=== PATIENT | male | born 1940 | race Caucasian/White ===

== ENCOUNTER 2019-07-27 08:27 | Emergency (ER) | payer MEDICARE, SELFPAY ==
--- NOTE | ~2019-07-27 | XR_ITS ---
EXAMINATION: [id number]_CR DATE: 07/27/2019 09:48 INDICATION: Right chest pain. Fall. TECHNIQUE: A frontal view of the chest and 3 views of the right ribs were obtained. COMPARISON: Chest 2 views 01/24/2019 FINDINGS: There is mild atelectasis in right lower lung zone. No pleural effusion or pneumothorax. Th e heart size is normal. There is an electronic implant in left anterior chest wall. There are old hea led fractures of right fifth-seventh ribs. There is a chronic compression fracture in lumbar spine wi th changes of vertebroplasty. IMPRESSION: 1. No acute rib fracture. Reviewed, dictated and finalized at location A. SPECIALIST IMPRESSION: 1. No acute rib fracture.
--- NOTE | ~2019-07-27 | XR_ITS ---
EXAMINATION: XR tibia fibula RT 2V DATE: 07/27/2019 09:48 INDICATION: Right lower leg pain. TECHNIQUE: 2 views of right tibia and fibula on 4 radiographs were obtained. COMPARISON: Right ankle radiographs 08/12/2016 FINDINGS: There is a total right knee arthroplasty in near-anatomic alignment. No periprosthetic luce ncy to suggest loosening or infection. There is a screw in distal fibula. There is heterotopic ossifi cation distal to medial malleolus. There is mild midfoot osteoarthritis. There are enthesophytes at t he posterior and plantar aspects of calcaneal tuberosity. Vascular calcifications are noted. IMPRESSION: 1. Total right knee arthroplasty in near-anatomic alignment. Reviewed, dictated and finalized at location A. D NUTRITION ASSISTANT
[2019-07-27 08:32] VITALS: BP 124/73; PULSE 57; RESP 16; TEMP 36.6; O2SAT 99
--- NOTE | 2019-07-27 11:09 | ED.FALL ---
HPI - Fall General Chief Complaint: Fall Stated Complaint: fall Time Seen by Provider: 07/27/19 08:59 Source: patient Mode of arrival: ambulatory Limitations: no limitations History of Present Illness HPI Narrative: Patient presents with chief complaint of large skin tear to the right lower leg and pain to the right ribs after falling off the edge of the bed yesterday. Patient states he was told that he has osteoporosis so he wanted to make sure he had not fractured his ribs as he has in the past. Patient states his past medical history significant for cervical spine surgery in January 2019, but he denies any head impact or neck pain due to his recent fall. Patient states that he was on metoprolol due to A. fib but it was removed as they wonder if it was making him dizzy. Patient states that he was also on blood thinners but they were stopped as he falls frequently. Patient states that he has an appointment with Dr. Fisher at 3:30 PM today because his loop recorder has been picking up more episodes of A. fib and they are going to address it. He denies any dizziness, headache, nausea, vomiting, chest pain, shortness of breath, neck pain, abdominal pain, back pain or any other symptoms at this time. Related Data Home Medications Medication Instructions Recorded Confirmed allopurinol 100 mg tablet 100 mg PO DAILY 04/21/19 amiodarone 100 mg tablet 100 mg PO BID tablet 04/21/19 aspirin 325 mg tablet 325 mg PO DAILY 04/21/19 atorvastatin 10 mg tablet 10 mg PO DAILY 04/21/19 azelastine 137 mcg (0.1 %) nasal 137 mcg NASAL Q12H 04/21/19 spray aerosol budesonide-formoterol HFA 160 2 puff INHALATION Q12H 04/21/19 mcg-4.5 mcg/actuation aerosol inhaler cetirizine 10 mg tablet 5 mg PO DAILY PRN 04/21/19 doxycycline hyclate 50 mg capsule 50 mg PO Q12H cap 04/21/19 fluticasone propionate 50 1 spray NASAL DAILY 04/21/19 mcg/actuation nasal spray,suspension guaifenesin 600 mg tablet, 600 mg PO BID 04/21/19 extended release 12 hr ipratropium bromide 17 1 puff INHALATION QID 04/21/19 mcg/actuation HFA aerosol inhaler lansoprazole 30 mg capsule,delayed 30 mg PO DAILY 04/21/19 release metolazone 2.5 mg tablet 2.5 mg PO DAILY 04/21/19 midodrine 10 mg tablet 10 mg PO TID 04/21/19 montelukast 10 mg tablet 10 mg PO DAILY 04/21/19 silodosin 4 mg capsule 8 mg PO DAILY cap 04/21/19 Allergies Allergy/AdvReac Type Severity Reaction Status Date / Time minocycline Allergy Mild Rash Verified 04/26/19 13:36 morphine Allergy Unknown Unknown Verified 04/26/19 13:36 Sulfa (Sulfonamide Allergy Unknown Unknown Verified 04/26/19 13:36 Antibiotics) Dust Allergy Intermediate SNEEZING, Uncoded 02/22/19 11:26 SINUS ISSUES Molds and Smuts Allergy Mild Cough Uncoded 02/22/19 11:26 Review of Systems Review of Systems: Narrative: CONSTITUTIONAL: Denies fever, chills, or sweats. EYES: Denies visual changes, redness, or discharge. ENT: Denies rhinorrhea, congestion, sore throat, or otalgia. CARDIOVASCULAR: Denies chest pain, palpitations, or edema. RESPIRATORY: Denies cough or dyspnea. GASTROINTESTINAL: Denies abdominal pain, nausea, vomiting, or diarrhea. GENITOURINARY: Denies dysuria or hematuria. SKIN: Reports skin tear. MUSCULOSKELETAL: Reports right rib and leg pain NEUROLOGIC: Denies headache, numbness, dizziness, or weakness. PSYCHIATRIC: Denies anxiety or depression. PMFSH Social History Social History Smoking status: Former smoker Second hand tobacco smoke exposure: No Smoking end date: 06/21/75 Alcohol intake: current Exam Narrative: Exam Narrative: GENERAL: Well-appearing, well-nourished, and in no acute distress. HEAD: Normocephalic, atraumatic. EYES: PERRLA and EOMI. ENT: Nares clear, no rhinorrhea or epistaxis. Mucous membranes moist. Oropharynx without tonsillar hypertrophy exudate or other lesions. Bilateral TMs pearly avina nonbulg
== END 2019-07-27 11:44 | disposition home or self-care (01) ==
PROVIDERS: Emergency Provider Physician Assistant; PCP Family Medicine
DX: S81.811A Laceration without foreign body, right lower leg, initial encounter (principal); S20.211A Contusion of right front wall of thorax, initial encounter; I48.91 Unspecified atrial fibrillation; Z87.891 Personal history of nicotine dependence; Z96.651 Presence of right artificial knee joint; M81.0 Age-related osteoporosis without current pathological fracture; W06.XXXA Fall from bed, initial encounter
CPT/HCPCS: 71101; 73590; 99284

== ENCOUNTER 2019-08-01 01:15 | Inpatient (IN) | payer MEDICARE, SELFPAY ==
[2019-08-01] VITALS (20 sets, daily range): BP systolic 98–141; BP diastolic 50–80; PULSE 98–128; RESP 16–25; TEMP 36.4–37.2; O2SAT 93–100; BMI 31.6
--- NOTE | ~2019-08-01 | CT_ITS ---
EXAMINATION: CT brain wo con DATE: 08/01/2019 01:43 INDICATION: Fall yesterday. Head injury. TECHNIQUE: Computed tomography (CT) of the head was performed without intravenous contrast. The mA wa s adjusted according to patient size. Iterative reconstruction technique was employed. Exam dose: 68 1.00 mGy-cm total exam DLP. COMPARISON: 01/24/2019 CT brain FINDINGS: There is some motion artifact, mildly limiting the study. 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 There is prominent bilateral carotid siphon internal carotid artery calcification and vertebral arter y and basilar artery calcification. There is nonspecific diminished attenuation of the cerebral white matter, likely due to chronic small vessel ischemic changes. No recent cerebrovascular infarct is evident but CT is not sensitive for detection of hyperacute isch emic infarct. There is moderate central and cortical cerebral and cerebellar atrophy. No midline shift or mass effe ct. No subdural or epidural hematoma is detected. Old minimally depressed posterior left parietal fracture is noted. No recent skull fracture is identi fied. The paranasal sinuses and mastoid air cells are unremarkable. IMPRESSION: No acute intracranial finding or new skull fracture is identified Reviewed, dictated and finalized at Location [facility]. Reviewed, dictated and finalized at location A. ED/WOODSHOP TEACHER
--- NOTE | ~2019-08-01 | XR_ITS ---
EXAMINATION: XR forearm LT 2V DATE: 08/01/2019 01:51 INDICATION: Laceration to the left forearm TECHNIQUE: AP an lateral views of the left forearm were obtained. COMPARISON: none FINDINGS: Bone alignment is normal. No fracture. Moderate osteoarthritis at the first carpal metacarpal joint a nd mild osteoarthritis at the triscaphe joint. No left elbow joint effusion. Small enthesophytes at t he medial and lateral epicondyles. No evident soft tissue gas or radiopaque foreign bodies. IMPRESSION: 1. No acute osseous abnormality or radiopaque foreign bodies. Reviewed, dictated and finalized at location A. ATOR TESTER
--- NOTE | ~2019-08-01 | CT_ITS ---
EXAMINATION: CT facial & cervical spine wo DATE: 08/01/2019 01:44 INDICATION: Fall, head injury. Frequent falls. TECHNIQUE: Computed tomography (CT) of the facial bones and maxillofacial region and cervical spine w as performed without intravenous contrast. Automated exposure control and iterative reconstruction te chnique were employed. Exam dose: 390.76 mGy-cm total exam DLP. COMPARISON: None. FINDINGS: The examination is limited by motion. There is mild mucoperiosteal thickening of both maxillary sinuses. The frontozygomatic sutures, orbital rims and ohara, zygomatic arches and the nasal bones and anterio r maxillary spine and the remainder of the facial bones are intact, without evidence of fracture. Nor mal alignment at the temporomandibular joints. No mandibular fracture is evident. Incidentally noted are prominent; tubular and submental lymph nodes. Status post anterior and interbody spinal fusion at C4-5. There is moderate degenerative disc disease throughout the cervical spine. There is degenerative mahajan ge at the apophyseal joints throughout the cervical spine. No fracture or dislocation or locked facet or prevertebral soft tissue swelling is detected. IMPRESSION: No evidence of facial fracture Mild bilateral maxillary sinus mucoperiosteal thickening Prominent submandibular and submental lymph nodes Status post anterior and interbody spinal fusion at C4-5 Degenerative changes of the cervical spine Reviewed, dictated and finalized at Location [facility]. Reviewed, dictated and finalized at location A. NESS AFFAIRS MANAGER
--- NOTE | ~2019-08-01 | XR_ITS ---
EXAMINATION: XR chest 1V portable EXAM DATE: 08/01/2019 01:51 INDICATION: Dizziness. TECHNIQUE: Portable AP frontal chest x-ray was obtained. Comparison is made to prior examination from 01/24/2019. FINDINGS: Minimal linear left basilar scarring unchanged. The lungs are otherwise clear. There are n o pleural effusions. The cardiomediastinal silhouette is within normal limits. There is no pneumoth orax suspected. There are old left rib fractures. Lumbar vertebroplasty. IMPRESSION: No acute cardiopulmonary findings. Reviewed, dictated and finalized at location B. DRILL OPERATOR
--- NOTE | 2019-08-01 01:15 | ED.FALL ---
HPI - Fall General Chief Complaint: Fall Stated Complaint: fall Time Seen by Provider: 08/01/19 01:15 Source: patient Mode of arrival: EMS Limitations: no limitations History of Present Illness HPI Narrative: A 78 y/o male presents to the ED, via EMS, after a fall today. Pt states that he got up to use the bathroom when he felt dizzy and fell. Pt reports a HI with a laceration near his right eye. Pt states that he has fallen multiple times recently with his last fall occurring on (5 days ago). Pt will get dizzy when I'm walking too fast. Pt not currently dizzy in the ED bed. Pt has a PMHx of A-fib and follows up with Dr. Fisher. Pt is on ASA. Pt lives with his . He denies a GAMBINO, N/V, CP, SOB, leg pain, shoulder pain, neck pain, and hip pain. Pt has a C-collar in place. Place fall occurred: home Symptoms prior to fall: dizziness Context: history of frequent falls Related Data Home Medications Medication Instructions Recorded Confirmed allopurinol 100 mg tablet 100 mg PO DAILY 04/21/19 amiodarone 100 mg tablet 100 mg PO BID tablet 04/21/19 aspirin 325 mg tablet 325 mg PO DAILY 04/21/19 atorvastatin 10 mg tablet 10 mg PO DAILY 04/21/19 azelastine 137 mcg (0.1 %) nasal 137 mcg NASAL Q12H 04/21/19 spray aerosol budesonide-formoterol HFA 160 2 puff INHALATION Q12H 04/21/19 mcg-4.5 mcg/actuation aerosol inhaler cetirizine 10 mg tablet 5 mg PO DAILY PRN 04/21/19 doxycycline hyclate 50 mg capsule 50 mg PO Q12H cap 04/21/19 fluticasone propionate 50 1 spray NASAL DAILY 04/21/19 mcg/actuation nasal spray,suspension guaifenesin 600 mg tablet, 600 mg PO BID 04/21/19 extended release 12 hr ipratropium bromide 17 1 puff INHALATION QID 04/21/19 mcg/actuation HFA aerosol inhaler lansoprazole 30 mg capsule,delayed 30 mg PO DAILY 04/21/19 release metolazone 2.5 mg tablet 2.5 mg PO DAILY 04/21/19 midodrine 10 mg tablet 10 mg PO TID 04/21/19 montelukast 10 mg tablet 10 mg PO DAILY 04/21/19 silodosin 4 mg capsule 8 mg PO DAILY cap 04/21/19 Allergies Allergy/AdvReac Type Severity Reaction Status Date / Time minocycline Allergy Mild Rash Verified 04/26/19 13:36 morphine Allergy Unknown Unknown Verified 04/26/19 13:36 Sulfa (Sulfonamide Allergy Unknown Unknown Verified 04/26/19 13:36 Antibiotics) Dust Allergy Intermediate SNEEZING, Uncoded 02/22/19 11:26 SINUS ISSUES Molds and Smuts Allergy Mild Cough Uncoded 02/22/19 11:26 Review of Systems Review of Systems: All systems reviewed & are unremarkable except as noted in HPI and below Constitutional: Comments: Reports: a fall Cardiovascular: Cardiovascular: Denies chest pain Respiratory: Respiratory: Denies dyspnea Gastrointestinal: Gastrointestinal: Denies nausea and Denies vomiting Musculoskeletal: Comments: Reports: laceration near right eye; Denies: leg pain, shoulder pain, neck pain, hip pain Neurologic: Reports dizziness (resolved) and Denies headache(s) Comments: Reports: [facility] Past Medical History Medical History (Updated 08/01/19 @ 03:50 by Hilary Lopez MD) Afib Allergic rhinitis, unspecified Anemia Benign hypertension Carotid artery disease Congestive heart failure Coronary artery disease Crohn's disease with complication Depression Diverticulitis Gastroesophageal reflux disease Gout, unspecified (06/06/15) Hypertensive chronic kidney disease with stage 1 through stage 4 chronic kidney disease, or unspecified chronic kidney disease Hypokalemia Leukocytosis Low iron Lymphedema Male erectile dysfunction, unspecified (06/06/15) Mixed hyperlipidemia (06/06/15) Paroxysmal atrial fibrillation Primary osteoarthritis, unspecified site Syncope and collapse 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
--- NOTE | 2019-08-01 01:18 | ECG_ITS ---
ATRIAL FIBRILLATION WITH RAPID VENTRICULAR RESPONSE INTRAVENTRICULAR CONDUCTION DELAY NONSPECIFIC ST & T-WAVE ABNORMALITY- DIFFUSE LEADS ABNORMAL ECG Electronically Signed On 08-02-2019 11:47:54 BEER STILL RUNNER COMPOUNDER by Da HARGROVE
[2019-08-01 01:59] LABS: Basophils Absolute Auto 0.1 K/mm3 (0.0-0.1); Basophils Percent Auto 0.6 % (0.2-1.2); Eosinophils Absolute Auto 0.1 K/mm3 (0-0.3); Eosinophils Percent Auto 0.5 % (0-4.4); Hemoglobin 13.5 g/dL (14.0-18.0); Immature Granulocyte Absolute 0.04 K/mm3 (0.00-0.031); Immature Granulocyte Percent A 0.4 % (0-0.5); Lymphocytes Absolute Auto 1.58 K/mm3 (0.9-3.2); Lymphocytes Percent Auto 16.1 % (18.3-44.2); Mean Corpuscular HGB Conc 32.1 g/dl (32-36); Mean Corpuscular Hemoglobin 28.1 pg (26-34); Mean Corpuscular Volume 87.5 fl (80-100); Monocytes Absolute Auto 1.3 K/mm3 (0.1-0.6); Monocytes Percent Auto 13.3 % (2.6-8.5); Neutrophils Absolute Auto 6.8 K/mm3 (1.3-6.7); Neutrophils Percent Auto 69.1 % (45.5-73.1); Platelet Count Result 142 k/mm3 (150-375); Red Cell Distribution Width 15.4 % (11.5-14.5); White Blood Count 9.8 K/mm3 (4.5-10.0)
[2019-08-01 02:10] LABS: Partial Thromboplastin Time 30.9 SECONDS (22.3-36.8); Prothrombin Time 12.9 Seconds (11.1-14.7)
[2019-08-01 02:27] LABS: Troponin I < 0.012 ng/mL (0.000-0.034)
[2019-08-01 02:29] LABS: Alanine Aminotransferase 130 U/L (4-50); Albumin Level 3.9 g/dL (3.5-5.1); Alkaline Phosphatase 171 U/L (38-126); Aspartate Amino Transferase 178 U/L (17-59); Blood Urea Nitrogen 27 mg/dL (9-20); Calcium 8.4 mg/dL (8.4-10.2); Carbon Dioxide 33 mmol/L (22-30); Chloride 86 mmol/L (98-107); Estimated Glomerular Filt Rate 46; Glucose 124 mg/dL (75-110); Magnesium 2.1 mg/dL (1.6-2.3); Sodium 133 mmol/L (137-145)
[2019-08-01 02:37] LABS: NT Pro B Type Natriuretic Pept 3910 PG/ML (5-100)
[2019-08-01] MEDS: POTASSIUM CHLORIDE 20 MEQ TABLET 40 MEQ PO ×2 (03:08→18:03)
--- NOTE | 2019-08-01 03:59 | ADMGEN ---
This patient, Jovani Jordan, was admitted to IMU Room 201-01. Patient/family oriented to hospital policies and general routines including ID bracelet, bed and alarms, visiting hours, pain management, procedures, bathroom and other care routines, personal items, smoking policy, room service/diet, and visiting hours. Valuables list has been completed. Information on how to activate the Rapid Response Team has been discussed. Patient/Family are encouraged to report perceived risks to care and to ask questions if they do not understand what they are told or what they should do.
[2019-08-01] MEDS: ACETAMINOPHEN 500 MG TABLET 1000 MG PO ×2 (09:37→18:03)
--- NOTE | 2019-08-01 10:05 | PM.IMHP ---
H&P: HPI History of Present Illness Chief complaint: ATRIAL FIBRILLATION WITH RVR,DIZZINESS,HYPOKALEMIA Narrative: Date and Time of Service of History & Physical: August 01, 2019 at 9:50 a.m.. Date and Time of Placement in Observation Order: August 01, 2019 at 3:11 a.m.. Chief Complaint: Dizziness and fall. History of Present Illness: Jovani Jordan is a 78 year old male with known paroxysmal atrial fibrillation, orthostatic hypotension, chronic diastolic congestive heart failure, asthma, COPD, obstructive sleep apnea and several other comorbidities including BPH who presented to the emergency room early this morning with complaint of fall and dizziness. Patient reports he gets up frequently at night to urinate. He has been seen urologist with adjustment in medications. Early this morning, patient had gone to the bathroom with his walker. He reports feeling very dizzy and unable to stand up. He believes he hit the vanity but no loss of consciousness. He does report he was treated for a urinary tract infection approximately 2 weeks ago. No current dysuria or hematuria. Patient with a known history of falling frequently. He does see Dr. Fisher for his atrial fibrillation. He reports he does have periodic increase in heart rate which is documented on his Apple watch. No recent fever or chills. He has had a cough for the past 3 days. He does also report chronic problems with constipation. Due to the fall, patient was brought to the emergency room. He was noted to be in atrial fibrillation with RVR. Bruising and lacerations noted. Cardiology was consulted from the emergency room. Patient has been placed in observation for further evaluation and treatment. Review of Systems Review of Systems: All systems reviewed & are unremarkable except as noted in HPI and below Constitutional: Constitutional: Denies chills and Denies fever(s) Eyes: Eyes: Denies blurry vision and Denies diplopia ENT: Denies epistaxis and Denies nasal discharge Cardiovascular: Cardiovascular: Denies chest pain, Reports lightheadedness and Denies palpitations Respiratory: Respiratory: Reports cough (x 3 days) and Denies dyspnea Gastrointestinal: Gastrointestinal: Reports abdominal pain, Reports constipation, Denies nausea and Denies vomiting Genitourinary: Genitourinary: Denies hematuria, Denies dysuria and Reports urinary frequency Musculoskeletal: Musculoskeletal: Reports back pain and Reports arthralgias (Shoulders) Integumentary/Breasts: Skin/Breast: Denies rash Comments: Laceration by right eye and bruising Neurologic: Denies confusion and Denies headache(s) Psychiatric: Psychiatric: Denies anxiety and Denies depression Endocrine: Endocrine: Reports no additional endocrine complaints Hematologic/Lymphatic: Hematologic/Lymphatic: Reports no additional hematologic/lymphatic complaints Allergic/Immunologic: Allergic/Immunologic: Reports no additional allergic/immunologic complaints [facility] Past Medical History Medical History (Updated 08/01/19 @ 17:39 by Ritu Ayala MD) Allergic rhinitis, unspecified Anemia Benign hypertension Carotid artery disease Congestive heart failure Contraindication to anticoagulation therapy Coronary artery disease Crohn's disease with complication Depressed skull fracture surgery on 01/25/2019 Depression Diverticulitis Gastroesophageal reflux disease Gout, unspecified (06/06/15) Hypertensive chronic kidney disease with stage 1 through stage 4 chronic kidney disease, or unspecified chronic kidney disease Hypokalemia Leukocytosis Low iron Lymphedema Male erectile dysfunction, unspecified (06/06/15) Mixed hyperlipidemia (06/06/15) Orthostatic hypotension Paroxysmal atrial fibrillation Persistent atrial fibrillation Primary osteoarthritis, unspecified site Status post placement of implantable loop recorder Syncope and collapse 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
--- NOTE | 2019-08-01 10:43 | PM.CNCAR ---
Assessment and Plan Assessment and plan (1) Persistent atrial fibrillation: Code(s): I48.19 - Other persistent atrial fibrillation Status: Acute Assessment and Plan: More persistent atrial fibrillation intermittent rapid ventricular response although patient is essentially asymptomatic in this regard but uncomfortable due to the fact he is aware he is tachycardic by data provided him from his Apple watch. Wean diltiazem off. Initiate metoprolol 12.5 mg twice daily. Discontinue amlodipine. Restart midodrine 5 mg t.i.d. ambulate with extreme caution. Historically, his atrial fibrillation this has not been clearly observed to contribute to his orthostasis or fall risk but nonetheless is not favorable. Unable to cardiovert due to contraindication to anticoagulation. Will increase amiodarone to 400 mg daily for the time being. We discussed while he was more symptomatic on metoprolol with reduced blood pressures but more comfortable heart rate control as an outpatient he was also taking concomitant amlodipine without midodrine. Very complicated clinical history and management. Discussed in detail my greatest concern with regards to symptomatic orthostatic hypotension falls and catastrophic injury. Patient is well where of height and embolic stroke risk due to atrial fibrillation however he is not a candidate for anticoagulation. He understands this and accepts this risk as we have no other reasonable option. Although, referral for Watchman device to reduce embolic stroke risk at [place] reasonable if patient in agreement. (2) Status post fall: Code(s): Z91.81 - History of falling Status: Acute Assessment and Plan: Appears secondary to orthostasis, symptomatic ambulating to use the restroom resulting in superficial head trauma. No LOC., (3) Orthostatic hypotension: Code(s): I95.1 - Orthostatic hypotension Status: Acute Assessment and Plan: Very difficult management with complicated medical conditions necessitating unorthodox medical management. Patient has frequent urination which creates multiple opportunities for falls which is highly problematic. Patient has seen Urology for this. Has not been on midodrine since his neck fracture/surgery at [place] but had been feeling well and was asymptomatic with stable blood pressures until recently. Syncope and or falls related to orthostatic hypotension have the greatest potential to result in catastrophic complications given his history. Discontinue amlodipine due to edema and constipation as well as admission with symptomatic hypotension and orthostasis. (4) Acute hypokalemia: Code(s): E87.6 - Hypokalemia Status: Acute Assessment and Plan: Repleted at admission. Recheck BMP. (5) ANAT on CPAP: Code(s): G47.33 - Obstructive sleep apnea (adult) (pediatric); Z99.89 - Dependence on other enabling machines and devices Status: Acute Assessment and Plan: Home CPAP has been nonfunctional for the past 2 weeks which is also contributing to patient's declining sense of well-being, refractory atrial fibrillation with rapid ventricular response. Resume SAV. (6) Nocturia: Code(s): R35.1 - Nocturia Status: Acute Assessment and Plan: As above. Highly problematic. Seen Urology as an outpatient. (7) Contraindication to anticoagulation therapy: Code(s): Z53.09 - Procedure and treatment not carried out because of other contraindication Status: Acute Assessment and Plan: As above. (8) History of loop recorder: Code(s): Z98.890 - Other specified postprocedural states Status: Acute Assessment and Plan: We have observed more persistent atrial fibrillation with intermittent rapid ventricular response more of an issue off CPAP of late. (9) At risk for amiodarone toxicity with middle or intermediate school principal use: Code(s): Z91.89 - Other specified personal risk factors, not elsewhere
[2019-08-01] MEDS: DULOXETINE 60 MG CAPSULE.DR PO (11:36)
[2019-08-01] MEDS: ASPIRIN 325 MG TABLET PO (11:36)
[2019-08-01] MEDS: ATORVASTATIN 10 MG TABLET PO (11:36)
[2019-08-01] MEDS: AZELASTINE HCL NASAL 0.1% 137 MCG/SPR 30 ML BTL 1 SPRAY NASAL ×2 (11:37→20:31)
[2019-08-01] MEDS: FLUTICASONE PROPIONATE 0.05% NA SPR 16 GM BTL (*BKC) 1 SPRAY NASAL (11:37)
[2019-08-01] MEDS: MONTELUKAST SODIUM 10 MG TABLET PO (11:37)
[2019-08-01 12:01] LABS: Potassium 3.1 mmol/L (3.4-5.0)
[2019-08-01] MEDS: MIDODRINE HCL 2.5 MG TABLET 5 MG PO ×2 (12:09→17:37)
[2019-08-01] MEDS: METOPROLOL TARTRATE 12.5 MG TABLET PO ×2 (12:09→20:31)
[2019-08-01] MEDS: AMIODARONE HCL 200 MG TABLET 400 MG PO (12:09)
[2019-08-01] MEDS: FAMOTIDINE 20 MG TABLET PO ×2 (12:10→20:31)
[2019-08-01] MEDS: metOLazone 2.5 MG TABLET PO (12:40)
--- NOTE | 2019-08-01 14:03 | PHAR ---
HOME MEDICATIONS VERIFIED BY PHARMACY: MESALAMINE 0.375 GRAM ER CAPSULES 2 CAPS PO QAM AND 1 CAPSULE EVERY EVENING RX#[id number] SILODOSIN 4MG CAPSULES 1 CAPSULE PO DAILY RX#[id number]
--- NOTE | 2019-08-01 20:19 | PCRCNOTE ---
PATIENT HAS BRUISING/STITCHES ON RIGHT SIDE OF NOSE FROM FALL. FOAM DRESSING USED TO RELIEVE SOME PRESSURE FROM CPAP MASK. PT FITTED WITH MEDIUM FULL FACE CPAP MASK WITH NO COMPLAINTS. REMINDED PATIENT TO CALL IF THERE IS ANY DISCOMFORT TO HIS NOSE/EYE.
[2019-08-02] VITALS (17 sets, daily range): BP systolic 102–119; BP diastolic 51–74; PULSE 81–113; RESP 18–24; TEMP 36.7–37.5; O2SAT 93–97; BMI 11.0
[2019-08-02 05:12] LABS: Blood Urea Nitrogen 30 mg/dL (9-20); Calcium 7.4 mg/dL (8.4-10.2); Carbon Dioxide 29 mmol/L (22-30); Chloride 93 mmol/L (98-107); Estimated CRCL calculation 45 ml/min; Estimated Glomerular Filt Rate 49; Glucose 101 mg/dL (75-110); Magnesium 2.2 mg/dL (1.6-2.3); Potassium 3.2 mmol/L (3.4-5.0); Sodium 132 mmol/L (137-145)
[2019-08-02 05:15] LABS: Alanine Aminotransferase 251 U/L (4-50); Alkaline Phosphatase 141 U/L (38-126); Aspartate Amino Transferase 448 U/L (17-59); Bilirubin,Total 0.8 mg/dL (0.2-1.3); Blood Urea Nitrogen 31 mg/dL (9-20); Calcium 7.5 mg/dL (8.4-10.2); Carbon Dioxide 30 mmol/L (22-30); Chloride 93 mmol/L (98-107); Estimated CRCL calculation 45 ml/min; Estimated Glomerular Filt Rate 49; Glucose 104 mg/dL (75-110); Potassium 3.1 mmol/L (3.4-5.0); Sodium 133 mmol/L (137-145)
[2019-08-02] MEDS: POTASSIUM CHLORIDE 20 MEQ TABLET.ER 40 MEQ PO (08:57)
[2019-08-02] MEDS: AMIODARONE HCL 200 MG TABLET 400 MG PO (08:59)
[2019-08-02] MEDS: allopurinoL 100 MG TABLET PO (09:01)
[2019-08-02] MEDS: MONTELUKAST SODIUM 10 MG TABLET PO (09:02)
[2019-08-02] MEDS: MIDODRINE HCL 2.5 MG TABLET 5 MG PO (09:03)
[2019-08-02] MEDS: FAMOTIDINE 20 MG TABLET PO ×2 (09:04→21:13)
[2019-08-02] MEDS: ASPIRIN 325 MG TABLET PO (09:04)
[2019-08-02] MEDS: DULOXETINE 60 MG CAPSULE.DR PO (09:04)
[2019-08-02] MEDS: AZELASTINE HCL NASAL 0.1% 137 MCG/SPR 30 ML BTL 1 SPRAY NASAL ×2 (09:05→21:13)
[2019-08-02] MEDS: ATORVASTATIN 10 MG TABLET PO (09:05)
[2019-08-02] MEDS: FLUTICASONE PROPIONATE 0.05% NA SPR 16 GM BTL (*BKC) 1 SPRAY NASAL (09:05)
[2019-08-02] MEDS: METOPROLOL TARTRATE 12.5 MG TABLET PO (09:08)
[2019-08-02] MEDS: SODIUM CHLORIDE 0.9% IV 250 ML IV CONT (10:45)
--- NOTE | 2019-08-02 12:22 | PM.PNCARD ---
Progress Note: A&P Assessment and Plan (1) Persistent atrial fibrillation: Code(s): I48.19 - Other persistent atrial fibrillation Status: Acute Assessment and Plan: Continue Amiodarone 400mg daily. Discontinue metoprolol given orthostasis and vasovagal syncope. Outpatient referral to electrophysiology and for further discussion regarding stroke risk reduction strategies such as Watchman device at [facility]. Will need to observe overall heart rate control closely on telemetry. Should be noted, his atrial fibrillation was not and has not been the primary cause of his orthostasis and syncope. Very difficult management with limited options. Very complicated clinical history and management. Discussed in detail my greatest concern with regards to symptomatic orthostatic hypotension falls and catastrophic injury. Patient is well aware of embolic stroke risk due to atrial fibrillation however he is not a candidate for anticoagulation. He understands this and accepts this risk. (2) Status post fall: Code(s): Z91.81 - History of falling Status: Acute Assessment and Plan: Appears secondary to orthostasis, symptomatic ambulating to use the restroom resulting in superficial head trauma. No LOC., (3) Orthostatic hypotension: Code(s): I95.1 - Orthostatic hypotension Status: Acute Assessment and Plan: Unfortunately, patient suffered vasovagal syncope due to orthostatic hypotension this morning. IV fluid bolus provided. Discontinue metolazone. Midodrine restarted, increased to 10 mg t.i.d.. PT OT. Extreme caution with any ambulation. Patient must rest at bedside for several minutes prior to position change. Very difficult management with complicated medical conditions necessitating unorthodox medical management. Patient has frequent urination which creates multiple opportunities for falls which is highly problematic. Patient has seen Urology for this. Has not been on midodrine since his neck fracture/surgery at [facility] but had been feeling well and was asymptomatic with stable blood pressures until recently. Syncope and or falls related to orthostatic hypotension have the greatest potential to result in catastrophic complications given his history. Discontinue amlodipine due to edema and constipation as well as admission with symptomatic hypotension and orthostasis. (4) Acute hypokalemia: Code(s): E87.6 - Hypokalemia Status: Acute Assessment and Plan: Replete, monitor closely. Recheck BMP. (5) ANAT on CPAP: Code(s): G47.33 - Obstructive sleep apnea (adult) (pediatric); Z99.89 - Dependence on other enabling machines and devices Status: Acute Assessment and Plan: Unfortunately, patient has not been able to tolerate CPAP due to facial injuries. Home CPAP has been nonfunctional for the past 2 weeks which is also contributing to patient's declining sense of well-being, refractory atrial fibrillation with rapid ventricular response. (6) Nocturia: Code(s): R35.1 - Nocturia Status: Acute Assessment and Plan: As above. Highly problematic. Seen Urology as an outpatient. (7) Contraindication to anticoagulation therapy: Code(s): Z53.09 - Procedure and treatment not carried out because of other contraindication Status: Acute Assessment and Plan: As above. (8) History of loop recorder: Code(s): Z98.890 - Other specified postprocedural states Status: Acute Assessment and Plan: We have observed more persistent atrial fibrillation with intermittent rapid ventricular response more of an issue off CPAP of late. 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
[2019-08-02] MEDS: ACETAMINOPHEN 500 MG TABLET 1000 MG PO (13:15)
[2019-08-02] MEDS: MIDODRINE HCL 10 MG TABLET PO ×2 (13:20→17:01)
--- NOTE | 2019-08-02 16:02 | PM.IMPN ---
Progress Note: A&P Assessment and Plan (1) Persistent atrial fibrillation: Code(s): I48.19 - Other persistent atrial fibrillation Status: Acute Assessment and Plan: Cardiology consulted and appreciate input. Telemetry reviewed on 08/02/2019 with heart rate remaining in the low 100s. Was on IV diltiazem on admission but discontinued yesterday. Now on higher dose of amiodarone as increased yesterday by Cardiology. Metoprolol discontinued this morning with hypotension. No anticoagulation history falls. Will continue to monitor. (2) Acute hypokalemia: Code(s): E87.6 - Hypokalemia Status: Acute Assessment and Plan: Potassium still low at 3.1 this morning with oral replacement already given. IV replacement still being given. Will continue to monitor and adjust replacement as needed. (3) Status post fall: Code(s): Z91.81 - History of falling Status: Acute Assessment and Plan: Fall with no loss of consciousness. No acute changes on imaging. Continue PT/OT. Anticipate need for SNF at discharge. (4) Orthostatic hypotension: Code(s): I95.1 - Orthostatic hypotension Status: Acute Assessment and Plan: Known chronic issue. Had episode again this morning. Metolazone and metoprolol discontinued. Midodrine increased. Will continue to monitor closely. Adjust treatment as needed. (5) Heart failure with preserved ejection fraction: Qualifiers: Heart failure chronicity: chronic Qualified Code(s): I50.32 - Chronic diastolic (congestive) heart failure Code(s): I50.30 - Unspecified diastolic (congestive) heart failure Status: Acute Assessment and Plan: No acute exacerbation at this time. Metolazone and metoprolol discontinued with orthostatic hypotension is noted. Will continue to monitor. (6) Laceration of face, multiple sites: Code(s): S01.81XA - Laceration without foreign body of other part of head, initial encounter Status: Acute Assessment and Plan: Continue local wound care. (7) Nocturia: Code(s): R35.1 - Nocturia Status: Acute Assessment and Plan: Ongoing issue which may be contributing to his problems with falls. Will continue home Rapaflo as long as patient is able to bring in. Will monitor. (8) COPD with asthma: Code(s): J44.9 - Chronic obstructive pulmonary disease, unspecified Status: Acute Assessment and Plan: Stable. No present exacerbation. Will continue Symbicort and Spiriva. Continue Xopenex HFA. Remains on room air. Will monitor. (9) ANAT on CPAP: Code(s): G47.33 - Obstructive sleep apnea (adult) (pediatric); Z99.89 - Dependence on other enabling machines and devices Status: Acute Assessment and Plan: Stable. Will continue CPAP. Patient reports CPAP machine at home recently broken with replacement. May be contributing to issues. (10) DVT prophylaxis: Code(s): Z29.9 - Encounter for prophylactic measures, unspecified Status: Acute Assessment and Plan: SCDs. Time Spent With Patient Time with patient: 15 - 25 minutes Subjective Date/time seen: 08/02/19 16:02 Interval history: Date of Service: 08/02/2019. Admitted with atrial fibrillation, fall, hypokalemia and orthostatic hypotension. Had more than 1 episode of syncope with orthostatic hypotension earlier today. Patient now in bed. Medication subsequently adjusted by Cardiology. No current chest pain or palpitations. No shortness of breath. Does feel chest congestion with slight cough. No abdominal pain. No nausea or vomiting. Review of Systems Constitutional: Constitutional: Denies chills and Denies fever(s) ENT: Denies nasal discharge Cardiovascular: Cardiovascular: Denies chest pain and Denies palpitations Respiratory: Respiratory: Reports chest congestion, Reports cough and Denies dyspnea Gastrointestinal: Gastrointestinal: Reports ab
[2019-08-03] VITALS (13 sets, daily range): BP systolic 108–142; BP diastolic 70–87; PULSE 102–124; RESP 18–22; TEMP 36.1–37.1; O2SAT 93–96
[2019-08-03 05:27] LABS: Blood Urea Nitrogen 31 mg/dL (9-20); Calcium 7.5 mg/dL (8.4-10.2); Carbon Dioxide 27 mmol/L (22-30); Chloride 94 mmol/L (98-107); Estimated CRCL calculation 42 ml/min; Estimated Glomerular Filt Rate 46; Glucose 109 mg/dL (75-110); Magnesium 2.2 mg/dL (1.6-2.3); Potassium 3.2 mmol/L (3.4-5.0); Sodium 133 mmol/L (137-145)
--- NOTE | 2019-08-03 08:00 | ECHO_ITS ---
Patient Info Name: Jovani Jordan Age: 78 years : 1940 Gender: Male Ht: 68 in Wt: 208 lbs BSA: 2.16 m2 HR: 111 bpm BP: 142 / 80 mmHg Heart Rhythm: Atrial Fibrillation Technical Quality: Good Exam Date: 08/03/2019 9:30 AM Exam Location: [facility] Pulmonary Patient Status: Inpatient Admit Date: 08/02/2019 Staff Ordering Physician: Sanjay Fisher MD Oil Well Engineer: Hans Torres, RDCS, RT Attending Provider: Merissa Chew MD Referring Physician: Phillip WALDROP; Exam Type: CA echo doppler color flow Study Info Indications I48.0 - Paroxysmal atrial fibrillation Complete two-dimensional, color flow and Doppler transthoracic echocardiogram is performed. Summary 1. Left ventricular systolic function is lower limts of normal, estimated at 50-55%. 2. Left ventricular chamber dimension is normal. 3. There is mildly increased left ventricular wall thickness. 4. Right ventricular chamber dimension is mildly enlarged. 5. Right ventricular systolic function is normal. 6. Left atrial chamber dimension is moderately enlarged. 7. Right atrial chamber dimension is severely enlarged. 8. There is no aortic valve stenosis. 9. There is mild aortic valve regurgitation. 10. There is mild mitral valve regurgitation. 11. The mitral valve annulus is mildly calcified. 12. There is mild to moderate tricuspid valve regurgitation. 13. Mild pulmonary hypertension, estimated pulmonary arterial systolic pressure is 38 mmHg. 14. Dilated inferior vena cava with <50% collapse upon inspiration consistent with elevated right atrial pressure, 10 mmHg. 15. Technically difficulty study. Regional wall motion assessment limited due to poor endomyocardial border definition. Left Ventricle Left ventricular chamber dimension is normal. Left ventricular systolic function is lower limts of normal, estimated at 50-55%. There is mildly increased left ventricular wall thickness. The left ventricular diastolic function is indeterminate. Technically difficulty study. Regional wall motion assessment limited due to poor endomyocardial border definition. Right Ventricle Right ventricular chamber dimension is mildly enlarged. Right ventricular systolic function is normal. Left Atria Left atrial chamber dimension is moderately enlarged. Right Atria Right atrial chamber dimension is severely enlarged. Aortic Valve The aortic valve is not well visualized. There is no aortic valve stenosis. There is mild aortic valve regurgitation. Pulmonic Valve The pulmonic valve is not well visualized. Mitral Valve The mitral valve has normal leaflets. There is mild mitral valve regurgitation. The mitral valve annulus is mildly calcified. Tricuspid Valve The tricuspid valve leaflets are normal. There is mild to moderate tricuspid valve regurgitation. Mild pulmonary hypertension, estimated pulmonary arterial systolic pressure is 38 mmHg. Pericardium/Pleural The pericardium appears normal. There is no pericardial effusion. Inferior Vena Cava Dilated inferior vena cava with <50% collapse upon inspiration consistent with elevated right atrial pressure, 10 mmHg. Aorta The aortic root size at the sinus of Valsalva is normal. Left Ventricular Outflow Tract Name Value Normal LVOT 2D
[2019-08-03] MEDS: FAMOTIDINE 20 MG TABLET PO ×2 (08:29→20:35)
[2019-08-03] MEDS: MONTELUKAST SODIUM 10 MG TABLET PO (08:29)
[2019-08-03] MEDS: MIDODRINE HCL 10 MG TABLET PO ×3 (08:29→17:43)
[2019-08-03] MEDS: ATORVASTATIN 10 MG TABLET PO (08:29)
[2019-08-03] MEDS: DULOXETINE 60 MG CAPSULE.DR PO (08:29)
[2019-08-03] MEDS: allopurinoL 100 MG TABLET PO (08:29)
[2019-08-03] MEDS: ASPIRIN 325 MG TABLET PO (08:29)
[2019-08-03] MEDS: AMIODARONE HCL 200 MG TABLET 400 MG PO (08:29)
[2019-08-03] MEDS: FLUTICASONE PROPIONATE 0.05% NA SPR 16 GM BTL (*BKC) 1 SPRAY NASAL (08:30)
[2019-08-03] MEDS: AZELASTINE HCL NASAL 0.1% 137 MCG/SPR 30 ML BTL 1 SPRAY NASAL ×2 (08:30→20:35)
[2019-08-03] MEDS: POTASSIUM CHLORIDE 20 MEQ TABLET.ER 40 MEQ PO ×3 (08:30→17:43)
--- NOTE | 2019-08-03 08:45 | PCOTNOTE ---
Attempted to see pt for skilled OT tx. Pt was eating breakfast.
--- NOTE | 2019-08-03 09:39 | PCOTNOTE ---
Attempted mto see pt a second time this am. Pt was having EEG.
--- NOTE | 2019-08-03 14:56 | PCOTNOTE ---
Addendum entered by TATI Edge 08/03/19 14:59: This was 3rd attempt to see pt today. Original Note: Attempted to see pt. Pt was with
--- NOTE | 2019-08-03 15:06 | PM.PNCARD ---
Progress Note: A&P Assessment and Plan (1) Persistent atrial fibrillation: Code(s): I48.19 - Other persistent atrial fibrillation Status: Acute Assessment and Plan: Continue Amiodarone 400mg daily. Unable to tolerate any additional AV liz blocking agents. Given increasing LFTs uncomfortable escalating high doses of amiodarone given chronic use as an outpatient. Digoxin a consideration, however, given renal insufficiency, advanced age, and electrolyte issues with he hypokalemia I have significant reservation in general and in combination with amiodarone. I discussed these concerns with the patient who verbalized understanding and agreed he was not comfortable with digoxin. I discussed my preference for electrophysiology evaluation with regards to medical therapy and/or AV liz ablation and pacemaker. We had previously discussed referral for Watchman device consideration but this would likely be an outpatient evaluation in general. Patient is not comfortable being discharged from this hospital with delay and follow-up and referral and agrees with my suggestion to transfer to [place] for evaluation as an inpatient. Furthermore, he is at elevated risk for tachycardia induced cardiomyopathy and/or decompensated heart failure given persistent tachycardia and intolerance to rate controlling agents. -Options are limited in general particularly at this institution and the pt is not comfortable with delay in evaluation. -Given the level of complexity with this very pleasant gentleman I feel he would best served at [place] and consideration for AV liz ablation and PPM. -Spoke with Dr. Alaniz who agreed with plan of care and agreed to have patient transferred to [place]. (2) Status post fall: Code(s): Z91.81 - History of falling Status: Acute Assessment and Plan: Appears secondary to orthostasis, symptomatic ambulating to use the restroom resulting in superficial head trauma. No LOC., (3) Orthostatic hypotension: Code(s): I95.1 - Orthostatic hypotension Status: Acute Assessment and Plan: Remains relatively hypotensive despite midodrine 10 mg t.i.d. and essential bed rest. Vasovagal syncope yesterday due to orthostatic hypotension. Off Metolazone. midodrine restarted, increased to 10 mg t.i.d.. PT OT. Extreme caution with any ambulation. Very difficult management with complicated medical conditions necessitating unorthodox medical management. Patient has frequent urination which creates multiple opportunities for falls which is highly problematic. Patient has seen Urology for this. Has not been on midodrine since his neck fracture/surgery at [place] but had been feeling well and was asymptomatic with stable blood pressures until recently. Syncope and or falls related to orthostatic hypotension have the greatest potential to result in catastrophic complications given his history. (4) Acute hypokalemia: Code(s): E87.6 - Hypokalemia Status: Acute Assessment and Plan: Replete, monitor closely. Recheck BMP. Off Metolazone.. (5) ANAT on CPAP: Code(s): G47.33 - Obstructive sleep apnea (adult) (pediatric); Z99.89 - Dependence on other enabling machines and devices Status: Acute Assessment and Plan: Unfortunately, patient has not been able to tolerate CPAP due to facial injuries. Home CPAP has been nonfunctional for the past 2 weeks which is also contributing to patient's declining sense of well-being, refractory atrial fibrillation with rapid ventricular response. (6) Nocturia: Code(s): R35.1 - Nocturia Status: Acute Assessment and Plan: As above. Highly problematic. Seen Urology as an outpatient. (7) Contraindication to anticoagulation therapy: Code(s): Z53.09 - Procedure and treatment not carried out because of other contraindication Status: Acute Assessment and Plan: As above. (8) History of loop recorde
--- NOTE | 2019-08-03 15:30 | PM.IMPN ---
Progress Note: A&P Assessment and Plan (1) Persistent atrial fibrillation: Code(s): I48.19 - Other persistent atrial fibrillation Status: Acute Assessment and Plan: Cardiology consulted and appreciate input. Telemetry reviewed on 08/03/2019 with atrial fibrillation with heart rate remaining elevated. Previously on IV diltiazem on admission but then discontinued. On higher dose amiodarone. Metoprolol stopped with problems of hypotension. Discussed with Dr. Fisher this afternoon. Patient and Cardiology have discussed his options. At this point, the decision is made to proceed with possible transfer to tertiary center for Watchman procedure. Dr. Fisher was able to speak with Dr. Alaniz at [facility] who did accept patient for higher level of care. Will transfer as soon as bed available at [place]. Will continue monitor the meantime. No anticoagulation with history of falls. (2) Acute hypokalemia: Code(s): E87.6 - Hypokalemia Status: Acute Assessment and Plan: Potassium still low at 3.2 this morning with oral replacement increased to 40 mEq t.i.d.. Will monitor as long as here. Adjust replacement as needed. (3) Status post fall: Code(s): Z91.81 - History of falling Status: Acute Assessment and Plan: Fall with no loss of consciousness. No acute changes on imaging. Continue PT/OT. Now plan for transfer. (4) Orthostatic hypotension: Code(s): I95.1 - Orthostatic hypotension Status: Acute Assessment and Plan: Known chronic issue. Currently on midodrine with metolazone and metoprolol discontinued. Will continue to monitor while awaiting transfer. (5) Heart failure with preserved ejection fraction: Qualifiers: Heart failure chronicity: chronic Qualified Code(s): I50.32 - Chronic diastolic (congestive) heart failure Code(s): I50.30 - Unspecified diastolic (congestive) heart failure Status: Acute Assessment and Plan: No acute exacerbation at this time. Metolazone and metoprolol discontinued with orthostatic hypotension as noted. Will continue to monitor. (6) Laceration of face, multiple sites: Code(s): S01.81XA - Laceration without foreign body of other part of head, initial encounter Status: Acute Assessment and Plan: Continue local wound care. (7) Nocturia: Code(s): R35.1 - Nocturia Status: Acute Assessment and Plan: Ongoing issue which may be contributing to his problems with falls. Will continue home Rapaflo as long as patient is able to bring in. Will monitor. (8) COPD with asthma: Code(s): J44.9 - Chronic obstructive pulmonary disease, unspecified Status: Acute Assessment and Plan: Stable. No exacerbation. Will continue Symbicort and Spiriva. Continue Xopenex HFA. Remains on room air. Will monitor. (9) ANAT on CPAP: Code(s): G47.33 - Obstructive sleep apnea (adult) (pediatric); Z99.89 - Dependence on other enabling machines and devices Status: Acute Assessment and Plan: Stable. Will continue CPAP. Patient reports CPAP machine at home recently broken with replacement. May be contributing to issues. (10) DVT prophylaxis: Code(s): Z29.9 - Encounter for prophylactic measures, unspecified Status: Acute Assessment and Plan: SCDs. Time Spent With Patient Time with patient: 15 - 25 minutes Subjective Date/time seen: 08/03/19 15:30 Interval history: Date of Service: 08/03/2019. Admitted with atrial fibrillation, fall, hypokalemia and orthostatic hypotension. Seen this morning and again this afternoon. Patient tired. No current chest pain. Does have chest congestion and cough. No shortness of breath. No abdominal pain. Review of Systems Constitutional: Constitutional: Denies chills and Denies fever(s) ENT: Denies nasal discharge Cardiovascular: Cardiovascular: Denies chest pain and Denies palpit
--- NOTE | 2019-08-03 19:07 | PM.TDS ---
Transfer Discharge Sum: Prov Provider Date of admission: 08/02/19 10:49 Primary care physician: Trace Mann MD Admitting clinician: Merissa Chew MD Attending physician on admission: Ritu Ayala Consults: 08/01/19 03:12 Consult to Physician Routine Comment: Consulting Provider: Dorothy Jaquez Reason for consultation: atrial fibrillation with RVR Has provider been notified: Yes Attending physician on discharge: Ritu Irizarry Discharging clinician: Ritu Irizarry Anticipated date of transfer: 08/03/19 Receiving physician/facility: Dr. Alaniz at [facility] in [place]. DS: Diagnosis Admitting Diagnosis Admitting Diagnosis: Other persistent atrial fibrillation Discharge Diagnosis (1) Persistent atrial fibrillation: Code(s): I48.19 - Other persistent atrial fibrillation Status: Acute (2) Acute hypokalemia: Code(s): E87.6 - Hypokalemia Status: Acute (3) Status post fall: Code(s): Z91.81 - History of falling Status: Acute (4) Orthostatic hypotension: Code(s): I95.1 - Orthostatic hypotension Status: Acute (5) Heart failure with preserved ejection fraction: Qualifiers: Heart failure chronicity: chronic Qualified Code(s): I50.32 - Chronic diastolic (congestive) heart failure Code(s): I50.30 - Unspecified diastolic (congestive) heart failure Status: Acute (6) Laceration of face, multiple sites: Code(s): S01.81XA - Laceration without foreign body of other part of head, initial encounter Status: Acute (7) Nocturia: Code(s): R35.1 - Nocturia Status: Acute (8) COPD with asthma: Code(s): J44.9 - Chronic obstructive pulmonary disease, unspecified Status: Acute (9) ANAT on CPAP: Code(s): G47.33 - Obstructive sleep apnea (adult) (pediatric); Z99.89 - Dependence on other enabling machines and devices Status: Acute Transfer Discharge Sum: Med Medications Active and Home Medications: Home Medications allopurinol 100 mg tablet 100 mg PO DAILY 04/21/19 [History Confirmed 08/01/19] amiodarone 100 mg tablet 100 mg PO BID tablet 04/21/19 [History Confirmed 08/01/19] aspirin 325 mg tablet 325 mg PO DAILY 04/21/19 [History Confirmed 08/01/19] atorvastatin 10 mg tablet 10 mg PO DAILY 04/21/19 [History Confirmed 08/01/19] azelastine 137 mcg (0.1 %) nasal spray aerosol 137 mcg NASAL Q12H 04/21/19 [History Confirmed 08/01/19] budesonide-formoterol HFA 160 mcg-4.5 mcg/actuation aerosol inhaler 2 puff INHALATION Q12H 04/21/19 [History Confirmed 08/01/19] cetirizine 10 mg tablet 5 mg PO DAILY PRN 04/21/19 [History Confirmed 08/01/19] fluticasone propionate 50 mcg/actuation nasal spray,suspension 1 spray NASAL DAILY 04/21/19 [History Confirmed 08/01/19] guaifenesin 600 mg tablet, extended release 12 hr 600 mg PO BID 04/21/19 [History Confirmed 08/01/19] ipratropium bromide 17 mcg/actuation HFA aerosol inhaler 1 puff INHALATION QID 04/21/19 [History Confirmed 08/01/19] metolazone 2.5 mg tablet 2.5 mg PO EVERY OTHER DAY 04/21/19 [History Confirmed 08/01/19] midodrine 10 mg tablet 10 mg PO TID 04/21/19 [History Confirmed 08/01/19] montelukast 10 mg tablet 10 mg PO DAILY 04/21/19 [History Confirmed 08/01/19] duloxetine 60 mg capsule,delayed release 60 mg PO DAILY #30 cap 06/07/19 [Rx Confirmed 08/01/19] albuterol sulfate 90 mcg/actuation aerosol inhaler 2 inhalation INHALATION Q4-6H PRN #8.5 gm 07/10/19 [Rx Confirmed 08/01/19] mupirocin 1 applic TOPICAL BID #15 gm 07/27/19 [Rx Confirmed 08/01/19] mesalamine 0.375 g PO TID 08/01/19 [History Confirmed 08/01/19] silodosin 4 mg PO DAILY 08/01/19 [History Confirmed 08/01/19] Active Medications Acetaminophen (Tylenol Tablet) 1,000 mg PO Q6H PRN PRN Reason: Mild Pain (1-3) or Fever Last Admin: 08/02/19 13:15 Dose: 1,000 mg Documented by: Allopurinol (Zyloprim) 100 mg PO DAILY [facility] Last Admin: 08/03/19 08:29 Dose: 100 mg Docume
--- NOTE | 2019-08-03 23:39 | PC.NURSE ---
pt. transferred to [facility] as per doctors orders. report was given to Harris earlier this afternoon. [facility] here to transport pt.
== END 2019-08-03 23:00 | disposition short-term general hospital (02) | DRG 309 ==
LOC: ANHED 01:23 → ANHIMU 03:24
PROVIDERS: Admitting Provider Family Medicine; Emergency Provider General Practice; PCP Family Medicine; Visit Provider Hospitalist
DX: I48.19 Other persistent atrial fibrillation (principal); I50.32 Chronic diastolic (congestive) heart failure; I95.1 Orthostatic hypotension; J44.9 Chronic obstructive pulmonary disease, unspecified; I11.0 Hypertensive heart disease with heart failure; G47.33 Obstructive sleep apnea (adult) (pediatric); I77.89 Other specified disorders of arteries and arterioles; I25.10 Atherosclerotic heart disease of native coronary artery without angina pectoris; F32.9 Major depressive disorder, single episode, unspecified; I89.0 Lymphedema, not elsewhere classified; M19.90 Unspecified osteoarthritis, unspecified site; G56.23 Lesion of ulnar nerve, bilateral upper limbs; E78.2 Mixed hyperlipidemia; N52.9 Male erectile dysfunction, unspecified; R35.0 Frequency of micturition; E55.9 Vitamin D deficiency, unspecified; Z87.891 Personal history of nicotine dependence; E87.6 Hypokalemia; S01.81XA Laceration without foreign body of other part of head, initial encounter; W19.XXXA Unspecified fall, initial encounter; Z91.81 History of falling; R35.1 Nocturia
CPT/HCPCS: 12011; 36415; 70450; 70486; 71045; 72125; 73090; 80048; 80053; 83735; 83880; 84132; 84484; 85025; 85610; 85730; 93005; 93306; 94640; 94660; 96365; 96366; 96367; 97110; 97161; 97165; 97535; 99285; A9270; G0378; J3480; J7050; L0140

== ENCOUNTER 2019-10-09 10:13 | Emergency (ER) | payer MEDICARE, SELFPAY ==
--- NOTE | ~2019-10-09 | CT_ITS ---
EXAMINATION: CT brain wo con DATE: 10/09/2019 11:50 INDICATION: Head injury from fall TECHNIQUE: Computed tomography (CT) of the head was performed without intravenous contrast. The mA wa s adjusted according to patient size. Iterative reconstruction technique was employed. Exam dose: 92 0.82 mGy-cm total exam DLP. COMPARISON: 08/01/2019 CT brain FINDINGS: There is an old right frontal cerebrovascular accident. Chronic bilateral basal ganglia lacunar infarcts There is cerebral atrophy, greater in the frontal regions, as well as moderate cerebellar atrophy. There is nonspecific diminished attenuation of the cerebral white matter, likely due to chronic small vessel ischemic changes. There are prominent bilateral carotid siphon internal carotid artery calcif ications as well as vertebral artery calcification. No intracranial mass lesion or hemorrhage or recent cerebrovascular accident is evident. CT is not se nsitive for detection of hyperacute infarct. No skull fracture or bone destruction. Included paranasal sinuses and mastoid air cells are unremarka ble. 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 Reviewed, dictated and finalized at [facility]. IMPRESSION: Chronic right frontal and bilateral basal ganglia lacunar infarcts Cerebral atherosclerosis and chronic small vessel ischemic changes of the cereb ral white matter Cerebral and cerebellar atrophy No acute intracranial finding
--- NOTE | ~2019-10-09 | CT_ITS ---
EXAMINATION: CT cervical spine wo con DATE: 10/09/2019 11:51 INDICATION: Head injury, neck injury. TECHNIQUE: Computed tomography (CT) of the cervical spine was performed without intravenous contrast. Automated exposure control and iterative reconstruction technique were employed. Exam dose: 492.33 mGy-cm total exam DLP. COMPARISON: 07/23/2015 CT cervical spine FINDINGS: Status post anterior and interbody spinal surgical fusion at C4-5. There is mild anterolisthesis at C5-6. There is moderate degenerative disc disease at C3-4, C5-6 and C6-7 as well as C7-T1 and upper thoraci c region. Diffuse idiopathic skeletal hyperostosis of the upper thoracic spine. There is osteoarthritic change at the apophyseal joints throughout the cervical spine. No fracture, dislocation, locked facet or prevertebral soft tissue swelling. IMPRESSION: Status post anterior and interbody spinal fusion at C4-5 No fracture or dislocation. Degenerative changes Reviewed, dictated and finalized at [facility]. Reviewed, dictated and finalized at [facility].
--- NOTE | ~2019-10-09 | CT_ITS ---
EXAMINATION: CT lumbar spine wo con DATE: 10/09/2019 11:52 INDICATION: Fall. Back pain. TECHNIQUE: Computed tomography (CT) of the lumbar spine was performed without intravenous contrast. A utomated exposure control and iterative reconstruction technique were employed. Exam dose: 1274.78 m Gy-cm total exam DLP. COMPARISON: 11/13/2018 CT lumbar spine FINDINGS: Status post vertebroplasty at a previously reported fracture of L3, with increased loss of height and anterior wedging L3 since 11/13/2018. There is chronic compression fracture deformity of th e superior vertebral endplate of L5, relatively stable since 11/13/2018. Diffuse idiopathic skeletal hyperostosis of the lower thoracic and lumbar spine. There is moderately prominent degenerative disease throughout the lumbar spine. There is degenerative change at the sacroiliac joints. Physical noted is prominent diffuse left renal atrophy. There is bilateral perinephric stranding. The re is extensive calcification of the abdominal aorta and renal arteries, no abdominal aortic aneurysm . There is thickening of the urinary bladder wall. There is an NG tube in the stomach. IMPRESSION: L3 fracture and vertebroplasty; interval vertebroplasty and increased loss of height and anterior wedging since 11/13/2018 Chronic L5 fracture Reviewed, dictated and finalized at [facility]. Reviewed, dictated and finalized at [facility]. IMPRESSION: L3 fracture and vertebroplasty; interval vertebroplasty and increa sed loss of height and anterior wedging since 11/13/2018 Chronic L5 fracture
[2019-10-09 10:19] VITALS: BP 141/69; PULSE 80; RESP 17; TEMP 36.3; O2SAT 100
--- NOTE | 2019-10-09 11:42 | PC.NURSE ---
have been unable to draw blood, pt has been gone from room since the orders were placed
--- NOTE | 2019-10-09 11:43 | ED.GENADULT ---
HPI - General Adult General Chief complaint: Extremity Injury, Lower <Matt Kearney PA-C - Last Filed: 10/09/19 14:25> Stated complaint: Fall, leg and arm injury <FAHAD Francisco Last Filed: 10/09/19 14:25> Time Seen by Provider: 10/09/19 11:05 <FAHAD Francisco Last Filed: 10/09/19 14:25> Source: patient <FAHAD Francisco Last Filed: 10/09/19 14:25> Mode of arrival: ambulatory <FAHAD Francisco Last Filed: 10/09/19 14:25> Limitations: no limitations <FAHAD Francisco Last Filed: 10/09/19 14:25> History of Present Illness HPI narrative: Patient is a 78-year-old male who presents to emergency department from home for evaluation after sustaining injuries from a ground-level fall that he describes as mechanical after tripping over his feet. Patient noted skin tears to the left upper and lower extremity patient had EMS come to the house help manage his wounds and now presents noting pain in the 2 locations where he has skin tears as well as low back pain patient denies loss of consciousness syncope patient notes immunizations to be up-to-date. Patient on arrival in the room in no distress notes minimal pain to the low back. Patient denies any recent illness or other falls <Matt Kearney PA-C - Last Filed: 10/09/19 14:25> Related Data Home medications: Home Medications Medication Instructions Recorded Confirmed amiodarone 100 mg tablet 100 mg PO BID tablet 04/21/19 09/29/19 aspirin 325 mg tablet 325 mg PO DAILY 04/21/19 09/29/19 azelastine 137 mcg (0.1 %) nasal 137 mcg NASAL Q12H 04/21/19 09/29/19 spray aerosol cetirizine 10 mg tablet 5 mg PO DAILY PRN 04/21/19 09/29/19 guaifenesin 600 mg tablet, 600 mg PO BID 04/21/19 09/29/19 extended release 12 hr ipratropium bromide 17 1 puff INHALATION QID 04/21/19 09/29/19 mcg/actuation HFA aerosol inhaler metolazone 2.5 mg tablet 2.5 mg PO EVERY OTHER DAY 04/21/19 09/29/19 midodrine 10 mg tablet 10 mg PO TID 04/21/19 09/29/19 mesalamine 0.375 g PO TID 08/01/19 09/29/19 silodosin 4 mg PO DAILY 08/01/19 09/29/19 <Matt Kearney PA-C - Last Filed: 10/09/19 14:25> Allergies/adverse reactions: Allergies Allergy/AdvReac Type Severity Reaction Status Date / Time minocycline Allergy Mild Rash Verified 10/09/19 10:49 mold Allergy Mild Unknown Verified 10/09/19 10:49 house dust Allergy Unknown Unknown Verified 10/09/19 10:49 morphine Allergy Unknown Not Verified 10/09/19 10:49 Entered,Unknown Sulfa (Sulfonamide Allergy Unknown Not Verified 10/09/19 10:49 Antibiotics) Entered,Rash,Unknown Dust Allergy Intermediate SNEEZING, Uncoded 10/09/19 10:19 SINUS ISSUES Molds and Smuts Allergy Mild Cough Uncoded 10/09/19 10:19 grass Allergy Unknown Unknown Uncoded 10/09/19 10:19 <Matt Kearney PA-C - Last Filed: 10/09/19 14:25> Review of Systems Review of Systems: All systems reviewed & are unremarkable except as noted in HPI and below <Matt Kearney PA-C - Last Filed: 10/09/19 14:25> FORMERLY [facility], [facility]–1983 Past Medical History Medical History: Medical History Allergic rhinitis, unspecified Anemia Ataxia Benign hypertension Carotid artery disease Congestive heart failure Contraindication to anticoagulation therapy Coronary artery disease Crohn's disease with complication Depressed skull fracture surgery on 01/25/2019 Depression Diverticulitis Gastroesophageal reflux disease Gout, unspecified (06/06/15) Hypertensive chronic kidney disease with stage 1 through stage 4 chronic kidney disease, or unspecified chronic kidney disease Hypokalemia Insomnia Leukocytosis Low iron Lymphedema Male erectile dysfunction, unspecified (06/06/15) Mixed hyperlipidemia (06/06/15) Orthostatic hypotension Paroxysmal atrial fibrillation Persistent atrial fibrillation Primary osteoarthritis, unspecified site Status post placeme
[2019-10-09 12:06] LABS: Basophils Absolute Auto 0.1 K/mm3 (0.0-0.1); Basophils Percent Auto 0.7 % (0.2-1.2); Eosinophils Absolute Auto 0.3 K/mm3 (0-0.3); Eosinophils Percent Auto 3.7 % (0-4.4); Hematocrit 37.9 % (42.0-52.0); Immature Granulocyte Absolute 0.03 K/mm3 (0.00-0.031); Immature Granulocyte Percent A 0.3 % (0-0.5); Lymphocytes Absolute Auto 3.03 K/mm3 (0.9-3.2); Lymphocytes Percent Auto 33.8 % (18.3-44.2); Mean Corpuscular HGB Conc 31.7 g/dl (32-36); Mean Corpuscular Hemoglobin 28.4 pg (26-34); Mean Corpuscular Volume 89.6 fl (80-100); Mean Platelet Volume 9.5 fl (7.4-10.4); Monocytes Absolute Auto 1.1 K/mm3 (0.1-0.6); Monocytes Percent Auto 12.4 % (2.6-8.5); Neutrophils Absolute Auto 4.4 K/mm3 (1.3-6.7); Neutrophils Percent Auto 49.1 % (45.5-73.1); Platelet Count Result 128 k/mm3 (150-375); Red Blood Count 4.23 M/mm3 (4.6-6.20); Red Cell Distribution Width 15.1 % (11.5-14.5)
[2019-10-09 12:20] VITALS: BP 135/72; PULSE 78; RESP 18; O2SAT 99
[2019-10-09 12:21] LABS: Alanine Aminotransferase 12 U/L (4-50); Albumin Level 3.8 g/dL (3.5-5.1); Alkaline Phosphatase 115 U/L (38-126); Aspartate Amino Transferase 18 U/L (17-59); Bilirubin,Total 0.9 mg/dL (0.2-1.3); Blood Urea Nitrogen 21 mg/dL (9-20); Calcium 8.9 mg/dL (8.4-10.2); Carbon Dioxide 32 mmol/L (22-30); Chloride 97 mmol/L (98-107); Estimated CRCL calculation 56 ml/min; Estimated Glomerular Filt Rate > 60; Glucose 104 mg/dL (75-110); Potassium 3.1 mmol/L (3.4-5.0); Sodium 136 mmol/L (137-145)
[2019-10-09 13:25] LABS: Add Urine Microscopic? YES; Appearance Urine Clear (Clear); Bilirubin Urine Negative (Negative); Blood Urine Negative (Negative); Color Urine Yellow (Yellow); Glucose Urine UA Negative (Negative); Ketones Urine Negative (Negative); Leukocyte Esterase Ur Negative LEU/UL (Negative); Nitrate Urine Negative (Negative); Protein Urine Negative (Negative); RBC Urine 0-2 /hpf (0-2); Specific Grav Ur 1.011 (1.001-1.035); Urobilinogen Urine Negative mg/dL (<2.0); WBC Urine 0-3 /hpf
[2019-10-09 13:35] LABS: Magnesium 2.1 mg/dL (1.6-2.3)
== END 2019-10-09 14:38 | disposition home or self-care (01) ==
PROVIDERS: Emergency Medicine Emergency Medical Services; Emergency Provider Emergency Medicine; PCP Family Medicine
DX: S39.92XA Unspecified injury of lower back, initial encounter (principal); S81.812A Laceration without foreign body, left lower leg, initial encounter; S51.012A Laceration without foreign body of left elbow, initial encounter; D64.9 Anemia, unspecified; I25.10 Atherosclerotic heart disease of native coronary artery without angina pectoris; I50.9 Heart failure, unspecified; K50.90 Crohn's disease, unspecified, without complications; K21.9 Gastro-esophageal reflux disease without esophagitis; I13.0 Hypertensive heart and chronic kidney disease with heart failure and stage 1 through stage 4 chronic kidney disease, or unspecified chronic kidney disease; N18.9 Chronic kidney disease, unspecified; E78.2 Mixed hyperlipidemia; M19.90 Unspecified osteoarthritis, unspecified site; I48.19 Other persistent atrial fibrillation; G56.23 Lesion of ulnar nerve, bilateral upper limbs; E55.9 Vitamin D deficiency, unspecified; Z98.49 Cataract extraction status, unspecified eye; Z96.1 Presence of intraocular lens; Z96.659 Presence of unspecified artificial knee joint; Z87.891 Personal history of nicotine dependence; Z98.1 Arthrodesis status; W01.0XXA Fall on same level from slipping, tripping and stumbling without subsequent striking against object, initial encounter
CPT/HCPCS: 12001; 36415; 70450; 72125; 72131; 80053; 81001; 83735; 85025; 99284

== ENCOUNTER 2019-10-17 07:01 | Emergency (ER) | payer MEDICARE, SELFPAY ==
--- NOTE | ~2019-10-17 | XR_ITS ---
XR chest 2V 10/17/2019 07:42 Indication: Left-sided chest pain Procedure: AP and lateral views of the chest Comparison: Comparison to multiple prior studies sequentially, with oldest reviewed study dated 11/15. Findings: Cardiomegaly. Pacemaker leads are stable. There is chronic left basilar atelectasis/scarrin g. No acute focal pneumonia, edema or effusion. No pneumothorax. There is diffuse idiopathic skeletal hyperostosis (DISH) of the thoracic spine. Impression: 1: No acute cardiopulmonary disease. Reviewed, dictated and finalized at [facility]. Impression: 1: No acute cardiopulmonary disease.
--- NOTE | ~2019-10-17 | XR_ITS ---
XR abdomen/kub 1V 10/17/2019 07:41 Indication: Constipation Procedure: KUB Comparison: 01/10/2019 Findings: Bowel gas pattern is nonobstructive. Moderate colonic fecal loading. There are vertebroplas ty changes at L3 with chronic compression deformity. No acute osseous abnormality. There are pelvic a nd femoral vascular calcifications. Impression: 1: Nonobstructive bowel gas pattern. Reviewed, dictated and finalized at [facility]. Impression: 1: Nonobstructive bowel gas pattern.
[2019-10-17 07:00] VITALS: BP 154/78; PULSE 80; RESP 21; TEMP 37.2; O2SAT 98
--- NOTE | 2019-10-17 07:05 | ECG_ITS ---
Measurements Intervals [place] Rate: 80 P: [place]: 0 QRS: -53 QRSD: 180 T: 115 QT: 501 QTc: 578 Interpretive Statements ELECTRONIC VENTRICULAR PACEMAKER BASELINE WANDER- I, II, AVR, AVL, AVF, V1 NO FURTHER INTERPRETATION IS POSSIBLE ATYPICAL ECG Electronically Signed On 10-17-2019 14:07:30 CDT by Da Young D.O.
--- NOTE | 2019-10-17 07:20 | ED.CHESTPAIN ---
HPI - Chest Pain General Chief Complaint: Chest Pain Stated Complaint: CP Time Seen by Provider: 10/17/19 07:07 History of Present Illness HPI narrative: Patient is a 78-year-old male who presents ER with central chest pain. Pressure. Sudden onset at 5 AM. It was accompanied by a lot of belching as well as a explosive bowel movement. Patient reports he has been having constipation for several days and has been taking laxatives. No blood in his stool. No fever/chills/sweats with this. No history of coronary disease but does have history of A. fib for which he sees cardiology here. No alleviating factors at this time but does feel some mild improvement with belching. Related Data Home Medications Medication Instructions Recorded Confirmed amiodarone 100 mg tablet 100 mg PO BID tablet 04/21/19 09/29/19 aspirin 325 mg tablet 325 mg PO DAILY 04/21/19 09/29/19 azelastine 137 mcg (0.1 %) nasal 137 mcg NASAL Q12H 04/21/19 09/29/19 spray aerosol cetirizine 10 mg tablet 5 mg PO DAILY PRN 04/21/19 09/29/19 guaifenesin 600 mg tablet, 600 mg PO BID 04/21/19 09/29/19 extended release 12 hr ipratropium bromide 17 1 puff INHALATION QID 04/21/19 09/29/19 mcg/actuation HFA aerosol inhaler metolazone 2.5 mg tablet 2.5 mg PO EVERY OTHER DAY 04/21/19 09/29/19 midodrine 10 mg tablet 10 mg PO TID 04/21/19 09/29/19 mesalamine 0.375 g PO TID 08/01/19 09/29/19 silodosin 4 mg PO DAILY 08/01/19 09/29/19 Allergies Allergy/AdvReac Type Severity Reaction Status Date / Time minocycline Allergy Mild Rash Verified 10/17/19 08:17 mold Allergy Mild Unknown Verified 10/17/19 08:17 house dust Allergy Unknown Unknown Verified 10/17/19 08:17 morphine Allergy Unknown Not Verified 10/17/19 08:17 Entered,Unknown Sulfa (Sulfonamide Allergy Unknown Not Verified 10/17/19 08:17 Antibiotics) Entered,Rash,Unknown Dust Allergy Intermediate SNEEZING, Uncoded 04/28/20 08:17 SINUS ISSUES Molds and Smuts Allergy Mild Cough Uncoded 10/17/19 08:17 grass Allergy Unknown Unknown Uncoded 10/17/19 08:17 Review of Systems Review of Systems: All systems reviewed & are unremarkable except as noted in HPI and below Constitutional: Constitutional: Denies chills, Denies fever(s) and Denies weakness ENT: Denies nasal congestion and Denies sore throat Cardiovascular: Cardiovascular: Reports chest pain, Denies rapid heart rate and Denies radiating jaw, neck or arm pain Respiratory: Respiratory: Denies cough, Denies dyspnea and Denies wheezing Gastrointestinal: Gastrointestinal: Denies abdominal pain, Denies nausea and Denies vomiting Comments: Large bowel movement Musculoskeletal: Musculoskeletal: Denies back pain and Denies muscle cramps PMFSH Past Medical History Medical History (Updated 10/17/19 @ 11:43 by Hiren Rosa MD) Allergic rhinitis, unspecified Anemia Ataxia Benign hypertension Carotid artery disease Congestive heart failure Contraindication to anticoagulation therapy Coronary artery disease Crohn's disease with complication Depressed skull fracture surgery on 01/25/2019 Depression Diverticulitis Gastroesophageal reflux disease Gout, unspecified (06/06/15) Hypertensive chronic kidney disease with stage 1 through stage 4 chronic kidney disease, or unspecified chronic kidney disease Hypokalemia Insomnia Leukocytosis Low iron Lymphedema Male erectile dysfunction, unspecified (06/06/15) Mixed hyperlipidemia (06/06/15) Orthostatic hypotension Paroxysmal atrial fibrillation Persistent atrial fibrillation Primary osteoarthritis, unspecified site Status post placement of implantable loop recorder Syncope and collapse 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
[2019-10-17 07:35] LABS: Basophils Absolute Auto 0.1 K/mm3 (0.0-0.1); Basophils Percent Auto 0.6 % (0.2-1.2); Eosinophils Absolute Auto 0.3 K/mm3 (0-0.3); Eosinophils Percent Auto 3.6 % (0-4.4); Hematocrit 35.6 % (42.0-52.0); Hemoglobin 11.6 g/dL (14.0-18.0); Immature Granulocyte Absolute 0.08 K/mm3 (0.00-0.031); Immature Granulocyte Percent A 0.9 % (0-0.5); Lymphocytes Percent Auto 21.5 % (18.3-44.2); Mean Corpuscular HGB Conc 32.6 g/dl (32-36); Mean Corpuscular Hemoglobin 28.8 pg (26-34); Mean Corpuscular Volume 88.3 fl (80-100); Mean Platelet Volume 9.1 fl (7.4-10.4); Monocytes Absolute Auto 1.3 K/mm3 (0.1-0.6); Monocytes Percent Auto 14.7 % (2.6-8.5); Neutrophils Absolute Auto 5.2 K/mm3 (1.3-6.7); Neutrophils Percent Auto 58.7 % (45.5-73.1); Platelet Count Result 139 k/mm3 (150-375); Red Blood Count 4.03 M/mm3 (4.6-6.20); Red Cell Distribution Width 15.1 % (11.5-14.5); White Blood Count 8.8 K/mm3 (4.5-10.0)
[2019-10-17 07:47] LABS: Alanine Aminotransferase 10 U/L (4-50); Albumin Level 3.8 g/dL (3.5-5.1); Alkaline Phosphatase 120 U/L (38-126); Aspartate Amino Transferase 20 U/L (17-59); Bilirubin,Total 0.9 mg/dL (0.2-1.3); Blood Urea Nitrogen 20 mg/dL (9-20); Calcium 8.9 mg/dL (8.4-10.2); Carbon Dioxide 31 mmol/L (22-30); Chloride 98 mmol/L (98-107); Estimated CRCL calculation 61 ml/min; Estimated Glomerular Filt Rate > 60; Glucose 115 mg/dL (75-110); Lipase 34 U/L (23-300); Potassium 3.6 mmol/L (3.4-5.0); Sodium 135 mmol/L (137-145)
[2019-10-17 07:58] LABS: Troponin I < 0.012 ng/mL (0.000-0.034)
[2019-10-17 08:12] VITALS: PULSE 80; O2SAT 97
[2019-10-17 08:14] VITALS: BP 152/77; PULSE 80; RESP 19; TEMP 36.6; O2SAT 97
[2019-10-17 10:51] VITALS: BP 153/73; PULSE 80; RESP 18; TEMP 36.7; O2SAT 96
[2019-10-17 10:59] LABS: Troponin I < 0.012 ng/mL (0.000-0.034)
[2019-10-17 12:33] VITALS: BP 131/100; PULSE 78; RESP 20; O2SAT 100
== END 2019-10-17 12:20 | disposition home or self-care (01) ==
PROVIDERS: Emergency Provider Emergency Medicine; PCP Family Medicine
DX: R14.0 Abdominal distension (gaseous) (principal); R10.84 Generalized abdominal pain; R07.89 Other chest pain; I13.0 Hypertensive heart and chronic kidney disease with heart failure and stage 1 through stage 4 chronic kidney disease, or unspecified chronic kidney disease; Z87.891 Personal history of nicotine dependence; I50.9 Heart failure, unspecified; I25.10 Atherosclerotic heart disease of native coronary artery without angina pectoris; F32.9 Major depressive disorder, single episode, unspecified; K21.9 Gastro-esophageal reflux disease without esophagitis; N18.9 Chronic kidney disease, unspecified; I48.91 Unspecified atrial fibrillation
CPT/HCPCS: 36415; 71046; 74018; 80053; 83690; 84484; 85025; 93005; 99284

== ENCOUNTER 2019-12-07 10:23 | Emergency (ER) | payer MEDICARE, SELFPAY ==
[2019-12-07 10:23] VITALS: TEMP 35.9
--- NOTE | 2019-12-07 10:50 | ED.CPR ---
HPI - CPR General Chief Complaint: Cardiac Arrest/CPR Stated Complaint: cardiac arrest Source: RN notes reviewed History of Present Illness HPI narrative: Patient presents emergency department from home in cardiac arrest. EMS was called at 0949 for patient who was unresponsive. states that she had seen the patient approximately 5 minutes prior to that and come back and patient was unresponsive in his chair he had been pulled to the floor and had CPR performed at that time. When EMS initially arrived the patient was noted to be in V. tach and shocked once went and followed by [facility] which the patient is remained in. The patient was intubated in the field Related Data Home Medications Medication Instructions Recorded Confirmed amiodarone 100 mg tablet 100 mg PO BID tablet 04/21/19 09/29/19 aspirin 325 mg tablet 325 mg PO DAILY 04/21/19 09/29/19 cetirizine 10 mg tablet 5 mg PO DAILY PRN 04/21/19 09/29/19 guaifenesin 600 mg tablet, 600 mg PO BID 04/21/19 09/29/19 extended release 12 hr ipratropium bromide 17 1 puff INHALATION QID 04/21/19 09/29/19 mcg/actuation HFA aerosol inhaler metolazone 2.5 mg tablet 2.5 mg PO EVERY OTHER DAY 04/21/19 09/29/19 midodrine 10 mg tablet 10 mg PO TID 04/21/19 09/29/19 mesalamine 0.375 g PO TID 08/01/19 09/29/19 silodosin 4 mg PO DAILY 08/01/19 09/29/19 Allergies Allergy/AdvReac Type Severity Reaction Status Date / Time minocycline Allergy Mild Rash Verified 10/17/19 08:17 mold Allergy Mild Unknown Verified 10/17/19 08:17 house dust Allergy Unknown Unknown Verified 10/17/19 08:17 morphine Allergy Unknown Not Verified 10/17/19 08:17 Entered,Unknown Sulfa (Sulfonamide Allergy Unknown Not Verified 10/17/19 08:17 Antibiotics) Entered,Rash,Unknown Dust Allergy Intermediate SNEEZING, Uncoded 10/17/19 08:17 SINUS ISSUES Molds and Smuts Allergy Mild Cough Uncoded 10/17/19 08:17 grass Allergy Unknown Unknown Uncoded 10/17/19 08:17 Review of Systems Review of Systems: ROS unobtainable: Yes unobtainable due to endotracheal tube and unobtainable due to medical condition [facility] Past Medical History Medical History Allergic rhinitis, unspecified Anemia Ataxia Benign hypertension Carotid artery disease Congestive heart failure Contraindication to anticoagulation therapy Coronary artery disease Crohn's disease with complication Depressed skull fracture surgery on 01/25/2019 Depression Diverticulitis Gastroesophageal reflux disease Gout, unspecified (06/06/15) Hypertensive chronic kidney disease with stage 1 through stage 4 chronic kidney disease, or unspecified chronic kidney disease Hypokalemia Insomnia Leukocytosis Low iron Lymphedema Male erectile dysfunction, unspecified (06/06/15) Mixed hyperlipidemia (06/06/15) Orthostatic hypotension Paroxysmal atrial fibrillation Persistent atrial fibrillation Primary osteoarthritis, unspecified site Status post placement of implantable loop recorder Syncope and collapse 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 He is full code. He is a former smoker having quit in 1975. He did smoke 1 pack per day for approximately 10 years. History of drinking 1 martini every night. Smoking status: Former smoker Second hand tobacco smoke exposure: No Smoking end date: 06/21/75 Alcohol intake: current Substance use: never Gender identity (if verbalized by the patient): Male Spiritual care concerns: No Agree to blood products: Yes Exam Narrative: Exam Narrative: CAPPEARANCE: Lying in bed unresponsive to verbal and painful stimuli HEENT: Normocephalic, atraumatic, orotracheal tube in place Eyes: Pulses fixed and
--- NOTE | 2019-12-07 11:32 | PC.NURSE ---
Patient time of arrival 1023, see code blue sheet for documentation. EDP (Dr. Guzman) at bedside and ACLS protocol initiated at time of patient arrival to room 4 in ED. Time of 1043 MTS called at 1103 General Manager Called at 1057 (not a case at this time)
== END 2019-12-07 11:59 | disposition expired ==
PROVIDERS: Emergency Provider Emergency Medicine; PCP Family Medicine
DX: I46.9 Cardiac arrest, cause unspecified (principal); I13.0 Hypertensive heart and chronic kidney disease with heart failure and stage 1 through stage 4 chronic kidney disease, or unspecified chronic kidney disease; N18.9 Chronic kidney disease, unspecified; I50.9 Heart failure, unspecified; I25.10 Atherosclerotic heart disease of native coronary artery without angina pectoris; K21.9 Gastro-esophageal reflux disease without esophagitis; K50.90 Crohn's disease, unspecified, without complications; M10.9 Gout, unspecified; E78.2 Mixed hyperlipidemia; I48.19 Other persistent atrial fibrillation; M19.90 Unspecified osteoarthritis, unspecified site; E55.9 Vitamin D deficiency, unspecified; G56.23 Lesion of ulnar nerve, bilateral upper limbs; Z79.82 Long term (current) use of aspirin
CPT/HCPCS: 31500; 92950; 99285; J0171; J7030